=== PATIENT | female | born 1935 | race African-American/Black ===

== ENCOUNTER 2022-05-02 10:08 | Inpatient (IN) ==
[2022-05-02] MEDS ORDERED: IMODIUM CAP 2 MG PO PRN (11:33)
[2022-05-02] MEDS ORDERED: ZOFRAN TAB 4 MG PO PRN (11:34)
[2022-05-02] MEDS: NORCO 7.5/325 MG TAB PO PRN (12:43)
[2022-05-02 17:47] VITALS: BMI 23.9
[2022-05-03] MEDS: SYNTHROID 25 mcg TAB PO SCH (06:44)
[2022-05-03] MEDS: ARICEPT TAB 5 MG PO SCH (09:02)
[2022-05-03] MEDS: LOVENOX INJ 40 MG SYR SC SCH (09:02)
[2022-05-03] MEDS: ZESTRIL TAB 10 MG PO SCH (09:02)
[2022-05-03] MEDS: NORCO 7.5/325 MG TAB PO PRN (09:05)
--- NOTE | 2022-05-03 12:55 | DR.H&P ---
H&P History & Physical for Day of: H&P Date: 05/03/22 Chief Complaint Chief Complaint: right pubic ramus fracture Allergies Allergies Allergy/AdvReac Type Severity Reaction Status Date / Time No Known Allergies Allergy Verified 05/02/22 12:27 History of Present Illness History of Present Illness: Ms Jenkins is a 87y/o female who presents for swing bed placement for PT/OT. She had a fall last week at home and was admitted at [facility]. She was found to have right pubic ramus fracture. She was advised with conservative management. She started ambulating a little bit with a walker and was sent here for rehab. She reports right hip pain. She did ambulate to the bathroom. Plan: will order routine labs. PT consult and evaluation. Fall precautions. Patient has been using a walker, denies using device prior to the fall. Continue pain control and DVT ppx. Past Surgical History Surgical History: Other Family History Family Medical History: Hypertension Medications Home Medications: No Known Allergies Allergy (Verified 05/02/22 12:27) CONTINUE taking the following medications adalimumab 40 mg/0.4 mL subcutaneous pen kit (Humira(CF) Pen) 40 mg subcut Q2W 05/03/22 [History] donepezil 5 mg tablet 5 mg PO QDAY 05/03/22 [History] levothyroxine 25 mcg tablet 25 mcg PO QAM 05/03/22 [History] tramadol 50 mg tablet 50 mg PO Q6H PRN pain 05/03/22 [History] Review of Systems Constitutional: No Symptoms Reported ENT: No Symptoms Reported Respiratory: No Symptoms Reported Cardiovascular: No Symptoms Reported Gastrointestinal: No Symptoms Reported Musculoskeletal: Leg Pain Skin: No Symptoms Reported Neurological: No Symptoms Reported Physical Exam Vital Signs: Temperature 98.4 F Pulse Rate [Left] 61 Respiratory Rate 20 Blood Pressure [Right Arm] 133/56 Blood Pressure [Left Arm] 115/61 O2 Sat by Pulse Oximetry 97 Oriented: Normal Eyes: Normal Respiratory: Clear Throughout Auscultation: Bowel Sounds: Normal Palpation: Normal Tenderness: Normal Musculoskeletal: Right and Leg (limited ROM, mild tenderness ) Psychiatric: Normal Mood Description: Calm Affect: Normal Speech Pattern: Clear and Appropriate Assessment/Plan (1) Pubic ramus fracture: Status: Acute (2) Encounter for physical therapy: Status: Acute (3) HTN (hypertension): Status: Acute Review H&P Reviewed: Yes Patient was examined?: Yes
--- NOTE | 2022-05-03 13:43 | PT/OTEVAL ---
PT/OT OBJECTIVES - HISTORY Prescription: PT Consult Diagnosis: Right Pubic Ramus Fracture Precautions: Fall Risk, WBAT PMH: HTN, Arthritis, Hypothyroidism Complexities/Comorbities: Fall Risk Prior Level of Function: Independent Other: Prior to fall- pt resided in single story home with her (unable to assist pt physically due to own medical conditions) with 1 step to enter. Pt was independent with all mobility tasks within home and community without a device including driving. Pt does have 6 children who can help. DME: SPC, FWW, Rollator, Wheelchair, Bedside Commode and Shower Chair. Pt's daughter present at time of evaluation and did report that upon discharge pt will be coming to stay with her so she can assist her as needed-daughter resides in single story home with small threshold to enter. History of Present Illness: Pt is an 87 year old female admitted to [facility] on 05/02/2022 from [facility] for swing bed rehab. Pt presented to ED on [facility] on 04/25/2022 after a fall at home resulting in complaints of R hip and tailbone pain- following imaging pt was diagnosed with R superior and inferior pubic rami fractures and pt was admitted for further treatment. Pt was stabilized medically and transitioned to swing bed program due to inability to care for self. - COGNITION Mental Status: Alert, Oriented, Name Ability to Follow Directions: 1 Step Memory Loss: Short term memory loss Affect: Calm - PAIN Right Hip Pain Scale: Moderate (5-6) Comments: Pt reports pain to R lateral hip and groin region. - BED MOBILITY Rolling: Moderate, x1 Scooting: Maximum - TRANSFERS Supine to Sit: Maximum, x1 Sit to Stand: Maximum, x1 Sit or Stand Pivot: Maximum, x1 Safety Comment: Cues for proper hand placement & sequencing Safety (requires cues for:): Hand Placement Precaution - BALANCE Static Sitting: Good Standing: Poor Dynamic Sitting: Fair Standing: Total Assist - NEUROMOTOR/SENSATION Dann. Lower Ext Sensation: WFL Coordination: WFL Proprioception: WFL - HAND DOMINANCE Extremity Function: Hand Dominance: Right - ROM Right LE ROM: WFL Muscle Tone: WFL - STRENGTH Right LE Strength Number: 2 Other comment: Limited by pain Left LE Strength Number: 3 - GAIT Pt. ambulates how many feet?: 15 Amount of Assistance Required: Moderate Type of Assistive Device: Rolling Walker Comments: 15ft x 2 with mod assist x 2 required for safety - OBJECTIVE MEASURES & STANDARDS Objective Measures & Standards: Elderly Mobility Scale: 06/26 - TREATMENT Date: 05/02/22 Time: 13:00 Treatment Type: Evaluation Treatment Provided: Gait, Therapeutic Activities - TOTAL TREATMENT TIME Total Time: 75 - POST ASSESSMENT Post Assessment Comment: Pt was found in room with family present & agreeable to participation in PT services. Pt able to provide some of her history & PLOF information & daughters assisted in providing remaining information to PT. Pt does report having pain to R hip region that is worse with AROM and WB activities. Pt was noted with periods of confusion throughout requiring re- orientation to current location, swing bed program & goals for participation in therapy. Pt's family assisted in reorientation process as well. Pt required max assist x 1 for bed mobility tasks, able to tolerate sitting EOB with good balance noted x 20 minutes. Pt then required mod assist x 2 to ambulate to/from bathroom with FWW requiring cues to increase step length and step height and how to safely utilize FWW. Pt required max assist for hygiene tasks. Upon returning to EOB, pt reports feeling very tired and requesting to return to supine position requiring max assist. Pt was left supine in bed with call espinoza in reach & all needs met with family present. Pt would benefit from continued PT services to address remaining deficits & facilitate highest level of function & safe discharge planning. - EXIT DISPOSITION Exit Position: BED Call light in reach: Yes Bed Alarm On: NO Comments: 2 daughters and son in law present in room.
[2022-05-04] MEDS: SYNTHROID 25 mcg TAB PO SCH (05:32)
[2022-05-04] MEDS: NORCO 7.5/325 MG TAB PO PRN ×3 (05:33→19:57)
[2022-05-04 06:27] LABS: BASOPHILS # (AUTO) 0.1 X10^3/uL (0.0-0.1); EOSINOPHILS # (AUTO) 0.2 x10^3/uL (0.0-0.2); EOSINOPHILS % (AUTO) 4.1 % (0.9-2.9); HEMATOCRIT 34.1 % (36.0-47.0); HEMOGLOBIN 11.5 g/dL (12.0-16.0); LYMPHOCYTES # (AUTO) 1.3 X10^3/uL (1.3-2.9); LYMPHOCYTES % (AUTO) 25.5 % (21.0-51.0); MEAN CORPUSCULAR HEMOGLOBIN 28.3 pg (27.0-34.0); MEAN CORPUSCULAR HGB CONC 33.6 g/dL (33.0-35.0); MEAN CORPUSCULAR VOLUME 84.3 fL (80.0-100.0); MONOCYTES # (AUTO) 0.8 x10^3/uL (0.3-0.8); MONOCYTES % (AUTO) 15.5 % (0.0-13.0); NEUTROPHILS # (AUTO) 2.9 x10^3/uL (2.2-4.8); NEUTROPHILS % (AUTO) 53.9 % (42.0-75.0); RED BLOOD COUNT 4.05 X10^6/uL (3.5-5.4); RED CELL DISTRIBUTION WIDTH 14.8 % (11.6-16.5); WHITE BLOOD COUNT 5.3 X10^3/uL (3.6-10.0)
[2022-05-04 06:44] LABS: ALANINE AMINOTRANSFERASE 26 Units/L (12-78); ALBUMIN 2.9 g/dL (3.4-5.0); ALKALINE PHOSPHATASE 73 Units/L (46-116); ASPARTATE AMINO TRANSFERASE 22 Units/L (15-37); BLOOD UREA NITROGEN 15 mg/dL (7-18); CALCIUM 9.1 mg/dL (8.5-10.1); CHLORIDE 103 mmol/L (98-107); COR NA(FOR HYPERGLY) 139 mmol/L (136-145); SODIUM 139 mmol/L (136-145); TOTAL PROTEIN 6.6 g/dL (6.4-8.2); eGFR NON BLACK RACES > 60 (>60)
[2022-05-04] MEDS: LOVENOX INJ 40 MG SYR SC SCH (09:04)
[2022-05-04] MEDS: ARICEPT TAB 5 MG PO SCH (09:04)
[2022-05-04] MEDS: ZESTRIL TAB 10 MG PO SCH (09:05)
[2022-05-04] MEDS: TYLENOL 325 MG TAB PO PRN (17:50)
[2022-05-05] MEDS: NORCO 7.5/325 MG TAB PO PRN ×2 (00:52→11:46)
[2022-05-05] MEDS: SYNTHROID 25 mcg TAB PO SCH (05:53)
[2022-05-05] MEDS: LOVENOX INJ 40 MG SYR SC SCH (08:40)
[2022-05-05] MEDS: ARICEPT TAB 5 MG PO SCH (08:40)
[2022-05-05] MEDS: ZESTRIL TAB 10 MG PO SCH (08:41)
--- NOTE | 2022-05-05 18:05 | DR.UPDATE ---
H&P Update Prescription drug monitoring program results: PDMP reviewed and no concerns identified (PT WAS EXAMINED ON 05/02/22 WITHOUT CHANGES NOTED TO HISTORY AND PHYSICAL) H&P Reviewed: Yes Any changes to H&P?: No Patient was examined?: Yes
--- NOTE | 2022-05-05 18:06 | PCM.PROG ---
Progress Note - Progress Note for Day of Date of Exam: 05/05/22 - Subjective Subjective: Ms Jenkins is a 87y/o female who presents for swing bed placement for PT/OT. She had a fall last week at home and was admitted at [facility]. She was found to have right pubic ramus fracture. She was advised with conservative management. She started ambulating a little bit with a walker and was sent here for rehab. She reports right hip pain. She did ambulate to the bathroom. - Past Medical Family Social History Past Med/Fam/Surg Hx: No changes since H&P Allergies: Allergies No Known Allergies Allergy (Verified 05/02/22 12:27) - Review of Systems ROS: No change since H&P - Vital Signs and I&O's Vital Signs: Temperature 98.0 F Pulse Rate [Left] 69 Respiratory Rate 20 Blood Pressure [Right Arm] 145/67 Blood Pressure [Left Arm] 115/61 O2 Sat by Pulse Oximetry 96 Intake and Output: Intake & Output 05/03/22 05/04/22 05/05/22 05/06/22 11:59 11:59 11:59 11:59 Intake Total 520 / 520 700 / 700 536 / 536 Balance 520 / 520 700 / 700 536 / 536 - Physical Exam Oriented: Normal Eyes: Normal Ear: Normal Nose: Normal Throat: Normal Respiratory: Normal Cardiovascular: Normal : Normal Auscultation: Bowel Sounds: Normal Tenderness: Normal Skin: Normal Musculoskeletal: Right, Leg (limited ROM, mild tenderness), Back:Lumbar Psychiatric: Normal Mood Description: Calm Affect: Normal Speech Pattern: Clear, Appropriate - Laboratory and Diagnostics Result Diagrams: 05/04/22 05:34 05/04/22 05:34 Labs: Laboratory WBC 5.3 X10^3/uL (3.6-10.0) 05/04/22 05:34 RBC 4.05 X10^6/uL (3.5-5.4) 05/04/22 05:34 Hgb 11.5 g/dL (12.0-16.0) L 05/04/22 05:34 Hct 34.1 % (36.0-47.0) L 05/04/22 05:34 MCV 84.3 fL (80.0-100.0) 05/04/22 05:34 MCH 28.3 pg (27.0-34.0) 05/04/22 05:34 MCHC 33.6 g/dL (33.0-35.0) 05/04/22 05:34 RDW 14.8 % (11.6-16.5) 05/04/22 05:34 Plt Count 278 X10^3/uL (150.0-450.0) 05/04/22 05:34 MPV 9.0 fL (7.4-11.0) 05/04/22 05:34 Neut % (Auto) 53.9 % (42.0-75.0) 05/04/22 05:34 Lymph % (Auto) 25.5 % (21.0-51.0) 05/04/22 05:34 [place] % (Auto) 15.5 % (0.0-13.0) H 05/04/22 05:34 Eos % (Auto) 4.1 % (0.9-2.9) H 05/04/22 05:34 Baso % (Auto) 1.0 % (0.2-1.0) 05/04/22 05:34 Neut # (Auto) 2.9 x10^3/uL (2.2-4.8) 05/04/22 05:34 Lymph # (Auto) 1.3 X10^3/uL (1.3-2.9) 05/04/22 05:34 [place] # (Auto) 0.8 x10^3/uL (0.3-0.8) 05/04/22 05:34 Eos # (Auto) 0.2 x10^3/uL (0.0-0.2) 05/04/22 05:34 Baso # (Auto) 0.1 X10^3/uL (0.0-0.1) 05/04/22 05:34 Absolute Nucleated RBC 0.0 /100WBC 05/04/22 05:34 Sodium 139 mmol/L (136-145) 05/04/22 05:34 Corrected Sodium 139 mmol/L (136-145) 05/04/22 05:34 Potassium 3.9 mmol/L (3.5-5.1) 05/04/22 05:34 Chloride 103 mmol/L (98-107) 05/04/22 05:34 Carbon Dioxide 30.0 mmol/L (21-32) 05/04/22 05:34 BUN 15 mg/dL (7-18) 05/04/22 05:34 Creatinine 0.80 mg/dL (0.55-1.02) 05/04/22 05:34 Est GFR (MDRD) Af Amer > 60 (>60) 05/04/22 05:34 Est GFR (MDRD) Non-Af > 60 (>60) 05/04/22 05:34 Glucose 120 mg/dL (65-99) H 05/04/22 05:34 Calcium 9.1 mg/dL (8.5-10.1) 05/04/22 05:34 Corrected Calcium 10.0 mg/dL (8.5-10.1) 05/04/22 05:34 Total Bilirubin 0.50 mg/dL (0.2-1.0) 05/04/22 05:34 AST 22 Units/L (15-37) 05/04/22 05:34 ALT 26 Units/L (12-78) 05/04/22 05:34 Alkaline Phosphatase 73 Units/L (46-116) 05/04/22 05:34 Total Protein 6.6 g/dL (6.4-8.2) 05/04/22 05:34 Albumin 2.9 g/dL (3.4-5.0) L 05/04/22 05:34 Globulin 3.7 g/dL (2.5-4.5) 05/04/22 05:34 Albumin/Globulin Ratio 0.8 Ratio (1.1-2.1) L 05/04/22 05:34 - Plan (1) Encounter for physical therapy Status: Acute Plan: CONTINUE WITH SWING BED THERAPY WITH ROUTINE LABS AND CONTINUE CURRENT MEDICATIONS (2) HTN (hypertension) Status: Acute (3) Pubic ramus fracture Status: Acute
--- NOTE | 2022-05-05 19:30 | PT/OTEVAL ---
PT/OT OBJECTIVES - HISTORY Prescription: OT consult Diagnosis: Right Pubic Ramus fracture Precautions: WBAT, Fall risk PMH: HTN, Arthritis, Hypothryoidism Complexities/Comorbities: fall risk Prior Level of Function: Independent Other, comment: Patient independent with her basic ADLS Other: indepenedent with functional mobility/walking with no AD. Patient's daughter who is present at the time of eval reports that patient was still driving. Patient lives in a single level home and patient will be staying at her house ( with steps to enter the home)once patient is discharged from the facility History of Present Illness: Patient is an 87 yr old female who was admitted initially to [facility] due to a fall and sustained a right pubic fracture, with conservative mgmt. Paitent then transferred to swing bed program for further Skilled PT/OT services - COGNITION Mental Status: Alert, Oriented, Name, Anxious, Decreased Safety Awarenes Communication Status: Verbal Ability to Follow Directions: 1 Step Affect: Fearful - PAIN Right Hip Pain Scale: Severe (7-8) Comments: Pt reports pain to R lateral hip/LE , increase pain with standing - TRANSFERS Toileting: x2 Toileting comment: Due to pain, fatigue needed 2 person assist for BSC transfers Safety Comment: Patient has poor safety awareness and impulsivity Safety (requires cues for:): Hand Placement Precaution - ADL'S Upper Body ADL: Moderate Lower Body ADL: Dependent Toileting: Dependent Bathing: Dependent Bathing Comment: when fatigue sets in total assist is needed Hygeine: Dependent Hygeine Comment: when fatigue sets in total assist needed - BALANCE Static Sitting: Good Standing: Fair Balance Comment: Static Standing: Fair- Dynamic Sitting: Fair Standing: Poor - NEUROMOTOR/SENSATION Dann. Lower Ext Sensation: WFL Coordination: WFL Proprioception: WFL - STRENGTH Right LE Strength Number: 2 Other comment: Limited by pain Left LE Strength Number: 3 Right UE Strength Number: 3 Left UE Strength Number: 3 - TREATMENT Date: 05/05/22 Time: 02:30 Treatment Type: Evaluation Treatment Provided: Other (ADL training ) - TOTAL TREATMENT TIME Total Time: 75 - POST ASSESSMENT Post Assessment Comment: Patient was seated in her chair, with bed waller under her as assisted by her caregiver/daughter who is present and as patient has started to feel discomfort of current set up. patient was provided with assistance and requiring 2 person assist to perform chair<>BSC transfers. Paitent has poor posture,forward flexed position and constant pain indicated with standing and while completing SPT. Pt also demonstrating fear and anxiety with standing/transitions. As patient started to fatigue while seated in BSC, Patient becoming restless, decreasing safety awareness and increase impulsivity cues provided for safety. patient will initiate to perform toilteing hgygiene with poor performance, needing total assist/dependent. once patient was transferred back to chair,requiring 2 person assist. patient able to perform MOD A to complete UB dressing but all other ADLS will be total assist due to fatigue and pain. Paitent oriented to person, place, able to follow one step commands at this time.Patient's daughter present at the time to eval, and was able to provide PLOF, dc plans. Patient consent to the use of telehealt for therapy/OT eval was verbally reconfirmed. real time audion and video via secure zoom application was utilized, The pateint located at swing bed facility with [employer] assisting onsite and the therapist/OTR was located off-site. - EXIT DISPOSITION Exit Position: CHAIR Call light in reach: Yes Comments: Pt's daughter present PT/OT ASSESSMENT - OT Problem List: Decreased Mobility ADL's, Decreased Safety Aware, Decreased Dressing, Decreased Bathing, Decreased Grooming, Decreased UE Strength - OT GOALS Short Term Goals Days: 10 Mobility for ADL's: Patient will improve commode transfers to touch assist Dressing: Patient will improve UB and LB dressing skills to touch assist Bathing: Patient will improve Bathing skills to touch assist level Upper Ext. Strength/Use: Patient will demonstrate improve B UE strength by 3+/5 Care Home Goals Days: 20 Mobility for ADL's: Patient will be able to perform bathroom mobility at independent level Dressing: Patient will improve UB and LB dressing Skills to independent level Bathing: Patient will improve Bathing Skills to independent level Upper Ext. Strength/Use: Patient will improve B UE strength to 4/5 - PLAN Suggested Treatment Plan: Therapeutic Activity, Self Care Training, Therapeutic Ex with HEP, Patient Education, Family Education - FREQUENCY AND DURATION OT: 5x/week in 20 days Expected Continuation of Care at Discharge: Home (At her daughter's home ) Comments: Patient's daughter states she has the equipments needed to care for patient
[2022-05-06] MEDS: SYNTHROID 25 mcg TAB PO SCH (05:43)
[2022-05-06] MEDS: LOVENOX INJ 40 MG SYR SC SCH (09:42)
[2022-05-06] MEDS: ZESTRIL TAB 10 MG PO SCH (09:42)
[2022-05-06] MEDS: ARICEPT TAB 5 MG PO SCH (09:42)
[2022-05-07] MEDS: SYNTHROID 25 mcg TAB PO SCH (05:30)
[2022-05-07 06:54] LABS: BASOPHILS # (AUTO) 0.1 X10^3/uL (0.0-0.1); BASOPHILS % (AUTO) 1.1 % (0.2-1.0); EOSINOPHILS # (AUTO) 0.1 x10^3/uL (0.0-0.2); EOSINOPHILS % (AUTO) 1.7 % (0.9-2.9); HEMATOCRIT 31.9 % (36.0-47.0); HEMOGLOBIN 10.8 g/dL (12.0-16.0); LYMPHOCYTES # (AUTO) 1.6 X10^3/uL (1.3-2.9); LYMPHOCYTES % (AUTO) 23.8 % (21.0-51.0); MEAN CORPUSCULAR HEMOGLOBIN 28.5 pg (27.0-34.0); MEAN CORPUSCULAR HGB CONC 33.8 g/dL (33.0-35.0); MEAN CORPUSCULAR VOLUME 84.5 fL (80.0-100.0); MEAN PLATELET VOLUME 8.6 fL (7.4-11.0); MONOCYTES # (AUTO) 0.9 x10^3/uL (0.3-0.8); MONOCYTES % (AUTO) 13.4 % (0.0-13.0); NEUTROPHILS # (AUTO) 4.1 x10^3/uL (2.2-4.8); RED BLOOD COUNT 3.78 X10^6/uL (3.5-5.4); RED CELL DISTRIBUTION WIDTH 14.7 % (11.6-16.5); WHITE BLOOD COUNT 6.8 X10^3/uL (3.6-10.0)
[2022-05-07 07:16] LABS: ALANINE AMINOTRANSFERASE 24 Units/L (12-78); ALBUMIN 2.7 g/dL (3.4-5.0); ALKALINE PHOSPHATASE 77 Units/L (46-116); ASPARTATE AMINO TRANSFERASE 26 Units/L (15-37); BLOOD UREA NITROGEN 19 mg/dL (7-18); CALCIUM 9.1 mg/dL (8.5-10.1); CARBON DIOXIDE 27.5 mmol/L (21-32); CHLORIDE 103 mmol/L (98-107); COR CA(FOR HYPOALB) 10.1 mg/dL (8.5-10.1); COR NA(FOR HYPERGLY) 139 mmol/L (136-145); CREATININE 0.83 mg/dL (0.55-1.02); SODIUM 139 mmol/L (136-145); TOTAL PROTEIN 6.5 g/dL (6.4-8.2); eGFR NON BLACK RACES > 60 (>60)
[2022-05-07] MEDS: LOVENOX INJ 40 MG SYR SC SCH (08:26)
[2022-05-07] MEDS: ARICEPT TAB 5 MG PO SCH (08:26)
--- NOTE | 2022-05-07 08:54 | SP.EVAL ---
SPEECH EVALUATION - History Prescription: ST consult Diagnosis: nsg reported dementia PMH: Pt admitted to [facility] 04/25/22 rt superior and inferior pubic ramus fracture. Pt. was intermittently confused during PT and ST evaluations. Nursing reported pt. has previous dx of dementia, but was not in electronic records for [facility]. - Objective Prior level of function: Assistance Required Level of Function Comment: Lives at home with daughter. Driving Status: Patient Drives Comments: Pt. drove very short distances prior to hospitalization. - Cognition Mental Status: Confused (intermittent confusion) Ability to Follow Directions: 2 Step (difficulty following 3 step) Memory Loss: Short term memory loss - Communication Status Communication Status: Verbal Automatized Sequences: Within Functional Limit Sentence Completion: Impaired Produces Sentences: Within Functional Limit - Verbal Expression Names Objects: 100% Names Pictures: not assessed Names Body Parts: not assessed - Oral/Motor Examination Teeth Condition: top and bottom dentures Swallowing: No Impairments, Cough With Eating (pt coughed on mechanical soft) Swallowing: OME: good labial, lingual, and mandibular strength and ROM. Velar elevation difficult to determine. Face symmetrical. All oral motor mechanisms are WFL for swallowing. Dentures top and bottom. CSE: Pt. given thin liquids via straw, puree, and mechanical soft trials. Pt. coughed on mechanical soft and spit it out. Mild oral residue seen in mouth prior to any trials. Required liquid wash to clear oral residue. Required maximal verbal cueing to chew and swallow food. STx recommended 3x a week for diet analysis. Recommend puree solids and thin liquids. Recommend alternating between liquids and solids to clear oral residue. Recommend oral care after meals. All recommendations discussed with nsg. Comments: puree solids, thin liquids - Speech Goals Short Term Goals Decreased Swallow: Oral: Pt. will consume puree solids and thin liquids with min-0 verbal cueing. Double Backer Goals Decreased Swallow: Oral: Pt. will consume LRD with no s/s of airway compromise. - Assessment Goals discussed with family?: Yes (daughter and pt with impaired cognition) Patient/Family Goals: To return home at PLOF - Rehabilitation Rehabilitation Potential: Good Justification for potential: Daughter stated pt. on regular diet prior to hospitalization and had no difficulty consuming regular solids/thin liquids. Daughter stated no coughing, choking, and no verbal cues required to remind pt. to swallow. Weakness and Barriers: Cognitivie Barrier (dementia dx) - Suggested Treatment Plan Suggested Treatment: Swallow/Oral Function Th. (diet analysis) Treatment Comment: STx for diet analysis. Pt. at full potential for cognitive rehab. - Discharge Plan Expected Discharge Disposition: Home Comments: Recommendations: 1. STx 3x a week for diet analysis. 2. Puree solids and thin liquids. 3. Alternate between liquids and solids to clear oral residue. 4. Oral care after meals.
[2022-05-07] MEDS: ZESTRIL TAB 10 MG PO SCH (09:31)
[2022-05-07] MEDS: NORCO 7.5/325 MG TAB PO PRN ×2 (11:03→20:28)
--- NOTE | 2022-05-07 18:01 | PCM.PROG ---
Progress Note - Subjective Subjective: Ms Jenkins is a 87y/o female who presents for swing bed placement for PT/OT. She had a fall last week at home and was admitted at [facility]. She was found to have right pubic ramus fracture. She was advised with conservative management. - Past Medical Family Social History Past Med/Fam/Surg Hx: No changes since H&P Allergies: Allergies No Known Allergies Allergy (Verified 05/02/22 12:27) - Review of Systems ROS: No change since H&P - Vital Signs and I&O's Vital Signs: Temperature 99.0 F Pulse Rate [Left] 57 Respiratory Rate 18 Blood Pressure [Right Arm] 117/55 Blood Pressure [Left Arm] 115/61 O2 Sat by Pulse Oximetry 97 Intake and Output: Intake & Output 05/05/22 05/06/22 05/07/22 05/08/22 11:59 11:59 11:59 11:59 Intake Total 536 / 536 180 / 180 660 / 660 360 / 360 Balance 536 / 536 180 / 180 660 / 660 360 / 360 - Physical Exam Oriented: Normal Eyes: Normal Ear: Normal Nose: Normal Throat: Normal Respiratory: Normal Cardiovascular: Normal : Normal Auscultation: Bowel Sounds: Normal Tenderness: Normal Skin: Normal Musculoskeletal: Right, Leg (limited ROM, mild tenderness), Back:Lumbar Psychiatric: Normal Mood Description: Calm Affect: Normal Speech Pattern: Clear, Appropriate - Laboratory and Diagnostics Result Diagrams: 05/07/22 06:31 05/07/22 06:31 Labs: Laboratory WBC 6.8 X10^3/uL (3.6-10.0) 05/07/22 06:31 RBC 3.78 X10^6/uL (3.5-5.4) 05/07/22 06:31 Hgb 10.8 g/dL (12.0-16.0) L 05/07/22 06:31 Hct 31.9 % (36.0-47.0) L 05/07/22 06:31 MCV 84.5 fL (80.0-100.0) 05/07/22 06:31 MCH 28.5 pg (27.0-34.0) 05/07/22 06:31 MCHC 33.8 g/dL (33.0-35.0) 05/07/22 06:31 RDW 14.7 % (11.6-16.5) 05/07/22 06:31 Plt Count 299 X10^3/uL (150.0-450.0) 05/07/22 06:31 MPV 8.6 fL (7.4-11.0) 05/07/22 06:31 Neut % (Auto) 60.0 % (42.0-75.0) 05/07/22 06:31 Lymph % (Auto) 23.8 % (21.0-51.0) 05/07/22 06:31 [place] % (Auto) 13.4 % (0.0-13.0) H 05/07/22 06:31 Eos % (Auto) 1.7 % (0.9-2.9) 05/07/22 06:31 Baso % (Auto) 1.1 % (0.2-1.0) H 05/07/22 06:31 Neut # (Auto) 4.1 x10^3/uL (2.2-4.8) 05/07/22 06:31 Lymph # (Auto) 1.6 X10^3/uL (1.3-2.9) 05/07/22 06:31 [place] # (Auto) 0.9 x10^3/uL (0.3-0.8) H 05/07/22 06:31 Eos # (Auto) 0.1 x10^3/uL (0.0-0.2) 05/07/22 06:31 Baso # (Auto) 0.1 X10^3/uL (0.0-0.1) 05/07/22 06:31 Absolute Nucleated RBC 0.1 /100WBC 05/07/22 06:31 Sodium 139 mmol/L (136-145) 05/07/22 06:31 Corrected Sodium 139 mmol/L (136-145) 05/07/22 06:31 Potassium 3.9 mmol/L (3.5-5.1) 05/07/22 06:31 Chloride 103 mmol/L (98-107) 05/07/22 06:31 Carbon Dioxide 27.5 mmol/L (21-32) 05/07/22 06:31 BUN 19 mg/dL (7-18) H 05/07/22 06:31 Creatinine 0.83 mg/dL (0.55-1.02) 05/07/22 06:31 Est GFR (MDRD) Af Amer > 60 (>60) 05/07/22 06:31 Est GFR (MDRD) Non-Af > 60 (>60) 05/07/22 06:31 Glucose 117 mg/dL (65-99) H 05/07/22 06:31 Calcium 9.1 mg/dL (8.5-10.1) 05/07/22 06:31 Corrected Calcium 10.1 mg/dL (8.5-10.1) 05/07/22 06:31 Total Bilirubin 0.50 mg/dL (0.2-1.0) 05/07/22 06:31 AST 26 Units/L (15-37) 05/07/22 06:31 ALT 24 Units/L (12-78) 05/07/22 06:31 Alkaline Phosphatase 77 Units/L (46-116) 05/07/22 06:31 Total Protein 6.5 g/dL (6.4-8.2) 05/07/22 06:31 Albumin 2.7 g/dL (3.4-5.0) L 05/07/22 06:31 Globulin 3.8 g/dL (2.5-4.5) 05/07/22 06:31 Albumin/Globulin Ratio 0.7 Ratio (1.1-2.1) L 05/07/22 06:31 - Plan (1) Encounter for physical therapy Status: Acute Plan: CONTINUE WITH SWING BED THERAPY WITH ROUTINE LABS AND CONTINUE CURRENT MEDICATIONS (2) HTN (hypertension) Status: Acute (3) Pubic ramus fracture Status: Acute
[2022-05-08] MEDS: SYNTHROID 25 mcg TAB PO SCH (05:36)
--- NOTE | 2022-05-08 08:31 | RAD ---
HISTORYMass right hip, buttocksSTUDYAP pelvisCOMPARISONNoneFINDINGSPatient is rotated to the right. There is a cortical step-off in the area of the proximal right superior pubic ramus suggestive of a fracture and what appears to be a fracture of the right inferior pubic ramus. The remainder of the pelvic bones appear intact. The hip joints are intact. The proximal femurs appear intact.IMPRESSIONLikely fracture of the proximal superior pubic ramus on the rightFracture of the inferior pubic ramus on the rightElectronically signed by: CAMACHO SANTIAGO (May 08, 2022 08:29:22)
[2022-05-08] MEDS: LOVENOX INJ 40 MG SYR SC SCH (09:41)
[2022-05-08] MEDS: ARICEPT TAB 5 MG PO SCH (09:41)
[2022-05-08] MEDS: ZESTRIL TAB 10 MG PO SCH (09:41)
[2022-05-08] MEDS: NORCO 7.5/325 MG TAB PO PRN (09:46)
--- NOTE | 2022-05-08 13:44 | CT ---
Exam:CT PELVIS W/CONTRASTIndication: hx pelvic fx, new painful knotComparison: [None available]Technique: Axial images of the [pelvis] were obtained with coronal and sagittal reformatted images performed. Examination was performed [without] Intravenous contrast administration.Dose reduction techniques including Automated Exposure Control (AEC) and adjustment of mA and kV were utilized.Findings:Round dystrophic calcification/heterotopic ossification within subcutaneous tissues of the right buttock. Mild adjacent inflammatory change with subcutaneous fat.Mildly displaced fracture deformities of the right puboacetabular junction and inferior pubic ramus. The left obturator ring intact. Nondisplaced fracture deformity of the right sacral ala without diastasis of the SI joint. No fracture of the left sacral ala or diastasis of the SI joint. Bilateral DJD of the SI joints.Degenerative change are noted within bilateral facet joints. No acute fracture or listhesis of the lower lumbar spine.Both femoral heads are well positioned with the acetabular fossa without acute fracture or significant DJD. Enthesopathic change of the right left greater trochanters.Imaging of the pelvis demonstrates inflammatory change within the right adductor musculature. Dystrophic calcification of the uterus. Colonic diverticulosis without acute diverticulitis. Small fat containing umbilical hernia.IMPRESSIONMildly displaced fractures of the right puboacetabular junction and inferior pubic ramus.Nondisplaced fracture of the right sacral ala, constellation findings suggest insufficiency fractures.Heterotopic ossification within the subcutaneous tissues of the right buttock with mild surrounding inflammatory change likely in setting of previous trauma and/or surgery in the appropriate clinical setting.Edematous appearance of the right adductor musculature suggest strains likely related to above described obturator ring fractures.Additional chronic, incidental findings as described above.Electronically signed by: CHEO LARKIN (May 08, 2022 13:43:18)
[2022-05-09] MEDS: SYNTHROID 25 mcg TAB PO SCH (05:30)
[2022-05-09 06:38] LABS: BASOPHILS # (AUTO) 0.1 X10^3/uL (0.0-0.1); BASOPHILS % (AUTO) 1.1 % (0.2-1.0); EOSINOPHILS # (AUTO) 0.2 x10^3/uL (0.0-0.2); EOSINOPHILS % (AUTO) 3.8 % (0.9-2.9); HEMATOCRIT 33.8 % (36.0-47.0); HEMOGLOBIN 11.4 g/dL (12.0-16.0); LYMPHOCYTES # (AUTO) 1.7 X10^3/uL (1.3-2.9); LYMPHOCYTES % (AUTO) 30.8 % (21.0-51.0); MEAN CORPUSCULAR HEMOGLOBIN 28.5 pg (27.0-34.0); MEAN CORPUSCULAR HGB CONC 33.8 g/dL (33.0-35.0); MEAN CORPUSCULAR VOLUME 84.3 fL (80.0-100.0); MEAN PLATELET VOLUME 8.6 fL (7.4-11.0); MONOCYTES # (AUTO) 0.7 x10^3/uL (0.3-0.8); MONOCYTES % (AUTO) 12.9 % (0.0-13.0); NEUTROPHILS # (AUTO) 2.8 x10^3/uL (2.2-4.8); NEUTROPHILS % (AUTO) 51.4 % (42.0-75.0); RED BLOOD COUNT 4.01 X10^6/uL (3.5-5.4); RED CELL DISTRIBUTION WIDTH 14.4 % (11.6-16.5); WHITE BLOOD COUNT 5.4 X10^3/uL (3.6-10.0)
[2022-05-09 06:42] LABS: ALANINE AMINOTRANSFERASE 25 Units/L (12-78); ALBUMIN 2.7 g/dL (3.4-5.0); ALKALINE PHOSPHATASE 88 Units/L (46-116); ASPARTATE AMINO TRANSFERASE 19 Units/L (15-37); BLOOD UREA NITROGEN 12 mg/dL (7-18); CALCIUM 9.3 mg/dL (8.5-10.1); CARBON DIOXIDE 28.8 mmol/L (21-32); CHLORIDE 103 mmol/L (98-107); COR CA(FOR HYPOALB) 10.3 mg/dL (8.5-10.1); COR NA(FOR HYPERGLY) 138 mmol/L (136-145); CREATININE 0.79 mg/dL (0.55-1.02); SODIUM 138 mmol/L (136-145); TOTAL PROTEIN 6.6 g/dL (6.4-8.2); eGFR NON BLACK RACES > 60 (>60)
[2022-05-09] MEDS: ZESTRIL TAB 10 MG PO SCH (08:58)
[2022-05-09] MEDS: ARICEPT TAB 5 MG PO SCH (08:58)
[2022-05-09] MEDS: LOVENOX INJ 40 MG SYR SC SCH (08:59)
[2022-05-09] MEDS ORDERED: PATIENT'S HOME MEDICATION SC SCH (09:00)
--- NOTE | 2022-05-09 10:47 | PCM.PROG ---
Progress Note - Progress Note for Day of Date of Exam: 05/09/22 - Subjective Subjective: Ms Jenkins is a 87y/o female who presents for swing bed placement for PT/OT. She had a fall last week at home and was admitted at [facility]. She was found to have right pubic ramus fracture. She was advised with conservative management. - Past Medical Family Social History Past Med/Fam/Surg Hx: No changes since H&P Allergies: Allergies No Known Allergies Allergy (Verified 05/02/22 12:27) - Review of Systems ROS: No change since H&P - Vital Signs and I&O's Vital Signs: Temperature 98.4 F Pulse Rate [Left] 49 Respiratory Rate 18 Blood Pressure [Right Arm] 170/69 Blood Pressure [Left Arm] 144/64 O2 Sat by Pulse Oximetry 99 Intake and Output: Intake & Output 05/06/22 05/07/22 05/08/22 05/09/22 11:59 11:59 11:59 11:59 Intake Total 180 / 180 660 / 660 880 / 880 560 / 560 Balance 180 / 180 660 / 660 880 / 880 560 / 560 - Physical Exam Oriented: Normal Eyes: Normal Ear: Normal Nose: Normal Throat: Normal Respiratory: Normal Cardiovascular: Normal : Normal Auscultation: Bowel Sounds: Normal Tenderness: Normal Skin: Normal Musculoskeletal: Right, Leg (limited ROM, mild tenderness), Back:Lumbar, Tender Psychiatric: Normal Mood Description: Calm Affect: Normal Speech Pattern: Clear - Laboratory and Diagnostics Result Diagrams: 05/09/22 05:37 05/09/22 05:37 Labs: Laboratory WBC 5.4 X10^3/uL (3.6-10.0) 05/09/22 05:37 RBC 4.01 X10^6/uL (3.5-5.4) 05/09/22 05:37 Hgb 11.4 g/dL (12.0-16.0) L 05/09/22 05:37 Hct 33.8 % (36.0-47.0) L 05/09/22 05:37 MCV 84.3 fL (80.0-100.0) 05/09/22 05:37 MCH 28.5 pg (27.0-34.0) 05/09/22 05:37 MCHC 33.8 g/dL (33.0-35.0) 05/09/22 05:37 RDW 14.4 % (11.6-16.5) 05/09/22 05:37 Plt Count 316 X10^3/uL (150.0-450.0) 05/09/22 05:37 MPV 8.6 fL (7.4-11.0) 05/09/22 05:37 Neut % (Auto) 51.4 % (42.0-75.0) 05/09/22 05:37 Lymph % (Auto) 30.8 % (21.0-51.0) 05/09/22 05:37 [place] % (Auto) 12.9 % (0.0-13.0) 05/09/22 05:37 Eos % (Auto) 3.8 % (0.9-2.9) H 05/09/22 05:37 Baso % (Auto) 1.1 % (0.2-1.0) H 05/09/22 05:37 Neut # (Auto) 2.8 x10^3/uL (2.2-4.8) 05/09/22 05:37 Lymph # (Auto) 1.7 X10^3/uL (1.3-2.9) 05/09/22 05:37 [place] # (Auto) 0.7 x10^3/uL (0.3-0.8) 05/09/22 05:37 Eos # (Auto) 0.2 x10^3/uL (0.0-0.2) 05/09/22 05:37 Baso # (Auto) 0.1 X10^3/uL (0.0-0.1) 05/09/22 05:37 Absolute Nucleated RBC 0.1 /100WBC 05/09/22 05:37 Sodium 138 mmol/L (136-145) 05/09/22 05:37 Corrected Sodium 138 mmol/L (136-145) 05/09/22 05:37 Potassium 3.8 mmol/L (3.5-5.1) 05/09/22 05:37 Chloride 103 mmol/L (98-107) 05/09/22 05:37 Carbon Dioxide 28.8 mmol/L (21-32) 05/09/22 05:37 BUN 12 mg/dL (7-18) 05/09/22 05:37 Creatinine 0.79 mg/dL (0.55-1.02) 05/09/22 05:37 Est GFR (MDRD) Af Amer > 60 (>60) 05/09/22 05:37 Est GFR (MDRD) Non-Af > 60 (>60) 05/09/22 05:37 Glucose 111 mg/dL (65-99) H 05/09/22 05:37 Calcium 9.3 mg/dL (8.5-10.1) 05/09/22 05:37 Corrected Calcium 10.3 mg/dL (8.5-10.1) H 05/09/22 05:37 Total Bilirubin 0.40 mg/dL (0.2-1.0) 05/09/22 05:37 AST 19 Units/L (15-37) 05/09/22 05:37 ALT 25 Units/L (12-78) 05/09/22 05:37 Alkaline Phosphatase 88 Units/L (46-116) 05/09/22 05:37 Total Protein 6.6 g/dL (6.4-8.2) 05/09/22 05:37 Albumin 2.7 g/dL (3.4-5.0) L 05/09/22 05:37 Globulin 3.9 g/dL (2.5-4.5) 05/09/22 05:37 Albumin/Globulin Ratio 0.7 Ratio (1.1-2.1) L 05/09/22 05:37 - Plan (1) Encounter for physical therapy Status: Acute Plan: CONTINUE WITH SWING BED THERAPY WITH ROUTINE LABS AND CONTINUE CURRENT MEDICATIONS (2) HTN (hypertension) Status: Acute (3) Pubic ramus fracture Status: Acute
[2022-05-09] MEDS: NORCO 7.5/325 MG TAB PO PRN (13:20)
[2022-05-10] MEDS: SYNTHROID 25 mcg TAB PO SCH (05:33)
[2022-05-10] MEDS: ZESTRIL TAB 10 MG PO SCH (08:33)
[2022-05-10] MEDS: LOVENOX INJ 40 MG SYR SC SCH (08:33)
[2022-05-10] MEDS: ARICEPT TAB 5 MG PO SCH (08:33)
[2022-05-10] MEDS: NORCO 7.5/325 MG TAB PO PRN (09:30)
[2022-05-11] MEDS: NORCO 7.5/325 MG TAB PO PRN ×2 (01:52→09:10)
[2022-05-11] MEDS: SYNTHROID 25 mcg TAB PO SCH (05:33)
[2022-05-11] MEDS: ZESTRIL TAB 10 MG PO SCH (09:08)
[2022-05-11] MEDS: ARICEPT TAB 5 MG PO SCH (09:08)
[2022-05-11] MEDS: LOVENOX INJ 40 MG SYR SC SCH (09:09)
[2022-05-12] MEDS: SYNTHROID 25 mcg TAB PO SCH (05:30)
[2022-05-12 05:56] LABS: BASOPHILS # (AUTO) 0.1 X10^3/uL (0.0-0.1); BASOPHILS % (AUTO) 1.3 % (0.2-1.0); EOSINOPHILS # (AUTO) 0.1 x10^3/uL (0.0-0.2); EOSINOPHILS % (AUTO) 2.4 % (0.9-2.9); HEMATOCRIT 32.7 % (36.0-47.0); LYMPHOCYTES # (AUTO) 1.5 X10^3/uL (1.3-2.9); LYMPHOCYTES % (AUTO) 26.1 % (21.0-51.0); MEAN CORPUSCULAR HEMOGLOBIN 28.3 pg (27.0-34.0); MEAN CORPUSCULAR HGB CONC 33.6 g/dL (33.0-35.0); MEAN CORPUSCULAR VOLUME 84.2 fL (80.0-100.0); MEAN PLATELET VOLUME 8.5 fL (7.4-11.0); MONOCYTES # (AUTO) 0.7 x10^3/uL (0.3-0.8); MONOCYTES % (AUTO) 12.6 % (0.0-13.0); NEUTROPHILS # (AUTO) 3.3 x10^3/uL (2.2-4.8); NEUTROPHILS % (AUTO) 57.6 % (42.0-75.0); RED BLOOD COUNT 3.88 X10^6/uL (3.5-5.4); RED CELL DISTRIBUTION WIDTH 14.8 % (11.6-16.5); WHITE BLOOD COUNT 5.7 X10^3/uL (3.6-10.0)
[2022-05-12 06:15] LABS: ALANINE AMINOTRANSFERASE 30 Units/L (12-78); ALBUMIN 2.7 g/dL (3.4-5.0); ALKALINE PHOSPHATASE 88 Units/L (46-116); ASPARTATE AMINO TRANSFERASE 26 Units/L (15-37); BLOOD UREA NITROGEN 16 mg/dL (7-18); CALCIUM 8.9 mg/dL (8.5-10.1); CARBON DIOXIDE 28.8 mmol/L (21-32); CHLORIDE 104 mmol/L (98-107); COR CA(FOR HYPOALB) 9.9 mg/dL (8.5-10.1); COR NA(FOR HYPERGLY) 138 mmol/L (136-145); CREATININE 0.87 mg/dL (0.55-1.02); SODIUM 138 mmol/L (136-145); TOTAL PROTEIN 6.3 g/dL (6.4-8.2); eGFR NON BLACK RACES > 60 (>60)
[2022-05-12] MEDS: ARICEPT TAB 5 MG PO SCH (09:04)
[2022-05-12] MEDS: ZESTRIL TAB 10 MG PO SCH (09:04)
[2022-05-12] MEDS: LOVENOX INJ 40 MG SYR SC SCH (09:05)
[2022-05-12] MEDS: NORCO 7.5/325 MG TAB PO PRN ×2 (10:48→18:28)
[2022-05-13] MEDS: SYNTHROID 25 mcg TAB PO SCH (05:57)
[2022-05-13] MEDS: ARICEPT TAB 5 MG PO SCH (11:41)
[2022-05-13] MEDS: ZESTRIL TAB 10 MG PO SCH (11:41)
[2022-05-13] MEDS: LOVENOX INJ 40 MG SYR SC SCH (11:42)
[2022-05-14] MEDS: SYNTHROID 25 mcg TAB PO SCH (05:45)
[2022-05-14 05:56] LABS: BASOPHILS # (AUTO) 0.1 X10^3/uL (0.0-0.1); BASOPHILS % (AUTO) 1.1 % (0.2-1.0); EOSINOPHILS # (AUTO) 0.2 x10^3/uL (0.0-0.2); EOSINOPHILS % (AUTO) 2.8 % (0.9-2.9); HEMATOCRIT 34.4 % (36.0-47.0); HEMOGLOBIN 11.6 g/dL (12.0-16.0); LYMPHOCYTES # (AUTO) 1.6 X10^3/uL (1.3-2.9); LYMPHOCYTES % (AUTO) 29.3 % (21.0-51.0); MEAN CORPUSCULAR HEMOGLOBIN 28.3 pg (27.0-34.0); MEAN CORPUSCULAR HGB CONC 33.6 g/dL (33.0-35.0); MEAN CORPUSCULAR VOLUME 84.3 fL (80.0-100.0); MONOCYTES # (AUTO) 0.7 x10^3/uL (0.3-0.8); MONOCYTES % (AUTO) 13.9 % (0.0-13.0); NEUTROPHILS # (AUTO) 2.8 x10^3/uL (2.2-4.8); NEUTROPHILS % (AUTO) 52.9 % (42.0-75.0); RED BLOOD COUNT 4.09 X10^6/uL (3.5-5.4); RED CELL DISTRIBUTION WIDTH 14.5 % (11.6-16.5); WHITE BLOOD COUNT 5.4 X10^3/uL (3.6-10.0)
[2022-05-14 06:05] LABS: ALANINE AMINOTRANSFERASE 36 Units/L (12-78); ALKALINE PHOSPHATASE 100 Units/L (46-116); ASPARTATE AMINO TRANSFERASE 27 Units/L (15-37); BLOOD UREA NITROGEN 12 mg/dL (7-18); CALCIUM 9.2 mg/dL (8.5-10.1); CARBON DIOXIDE 31.7 mmol/L (21-32); CHLORIDE 103 mmol/L (98-107); CREATININE 0.79 mg/dL (0.55-1.02); SODIUM 138 mmol/L (136-145); TOTAL PROTEIN 6.9 g/dL (6.4-8.2); eGFR NON BLACK RACES > 60 (>60)
[2022-05-14] MEDS: ARICEPT TAB 5 MG PO SCH (09:20)
[2022-05-14] MEDS: TYLENOL 325 MG TAB PO PRN (09:21)
[2022-05-14] MEDS: ZESTRIL TAB 10 MG PO SCH (09:23)
[2022-05-14] MEDS: LOVENOX INJ 40 MG SYR SC SCH (09:23)
[2022-05-14] MEDS: NORCO 7.5/325 MG TAB PO PRN ×2 (11:09→15:32)
[2022-05-15] MEDS: NORCO 7.5/325 MG TAB PO PRN ×2 (04:52→08:35)
[2022-05-15] MEDS ORDERED: COLACE CAP 100 MG PO PRN (04:53)
[2022-05-15] MEDS: SYNTHROID 25 mcg TAB PO SCH (05:36)
[2022-05-15 08:32] VITALS: BP 151/75
[2022-05-15] MEDS: ARICEPT TAB 5 MG PO SCH (08:35)
[2022-05-15] MEDS: ZESTRIL TAB 10 MG PO SCH (08:35)
[2022-05-15] MEDS: LOVENOX INJ 40 MG SYR SC SCH (08:35)
== END 2022-05-15 11:10 | disposition home health service (06) | DRG 561 ==
LOC: MED/SURG 11:13
PROVIDERS: ADMIT Internal Medicine; ATTEND Internal Medicine
DX: R13.11 Dysphagia, oral phase; M79.661 Pain in right lower leg; Z91.81 History of falling; W18.39XD Other fall on same level, subsequent encounter; Z47.89 Encounter for other orthopedic aftercare; I10 Essential (primary) hypertension; F03.90 Unspecified dementia, unspecified severity, without behavioral disturbance, psychotic disturbance, mood disturbance, and anxiety; R73.09 Other abnormal glucose; R26.2 Difficulty in walking, not elsewhere classified; M25.551 Pain in right hip; S32.591D Other specified fracture of right pubis, subsequent encounter for fracture with routine healing